=== PATIENT | female | born 1945 | race Caucasian/White ===

== ENCOUNTER 2017-06-28 14:00 | Outpatient (RCR) | payer MEDICARE, SELFPAY ==
--- NOTE | 2017-06-13 15:41 | HP.PTEVAL_ITS ---
Patient's Visit Information SIN LOVELL is a 72 year old F referred to Physical Therapy by Arjun ANDREW with a diagnosis of Left Hip Pain. Date of Evaluation: 06/13/17 Physical Therapist: Theodora Lamb - Visit Plan Frequency: 2x /Week Duration: 3 Weeks Plan: Focus on gym HEP for hip/core - Subjective Subjective: Patient reports that she has had hip pain since January- put her on Naproxen and PT. She didnt want to. The Naproxen is helping a lot- she only has 5% of the pain. Wants to get on a program to work out on the machines. When she comes she tends to overdo. Pain is located along the outside of the hip. Catches and aches at night. Worst: 4/10 Agg: walking, Eases: sitting but has to get up every 30 minutes. Best: 0/10. Also has low back issues. X-rays which show no OA. Torn achilles which has never really healed on the right side so she feels like she compensates. pmhx: HTN, High cholesterol, hard of hearing, sleep apnea, OA. Caregiver 27/12 for her and prior to that she took care of her mom- does not lift but does bend over a lot. Chiropractor told her after 6-7 weeks that her vagal nerve was detatched and she needs to relieve stress- he can't help her. - Objective Posture: FH, RS, increased kyphosis. Gait: no deviation noted. Stairs: asc/ desc 8 recip with 1 HR. HR/TR: able. SLS: unable but can weight shift- reports discomfort. ROM: WFL. Strength: Ankle: 5/5, Knee:4+/5, Hip: 4/5 throughout Core: poor. Palpation: tender along greater troch - Goals Goal 1:: Patient will be I with HEP and progression Goal Time Frame: 4-6 Weeks Goal 2:: Patient will demo 4+/5 strength in LE Goal Time Frame: 4-6 Weeks Goal 3:: Patient will maintain proper posture t/o tx session to demo increased core s/s. Goal Time Frame: 4-6 Weeks - Rehabilitation Potential Physical Therapy Diagnosis: Patient presents with hypmobility- she has decrease strength and muscular endurance leading to poor posture and increased pain. Rehabilitation Potential: Fair - Anticipated Interventions Patient/Client Instruction: Educate patient on: Benefits of Fitness Program For the Purpose of:: To improve performance and independence with ADL's Therapeutic Exercise to Include: Strength training, Endurance training, Body mechanics, Postural training, Flexibilty training, Dynamic Lumbar Stabilization For the Purpose of:: To improve muscle performance and motor function Thank you for the opportunity to evaluate your patient. For Medicare and Medicare HMO plans, please review the plan of care and approve it. It will need to be FAXED BACK to us at [phone] for Medicare purposes. Please let me know if there are questions or concerns regarding this plan of care. Physician Signature: Date:
--- NOTE | 2017-06-28 14:18 | HP.PTDCSUM ---
HP - PT D/C Summary It has been my pleasure to treat SIN LOVELL under orders from Arjun Rose, for the diagnosis of Left Hip Pain for a total of 5 visit(s). Discharge Date: Please see the following information for a summary of their discharge status. - Subjective Subjective: Patient reports that she is having a hard time decipher between the hip and vertigo. The hip aches and she knows its there. TM and Nustep. - Pain L hip Pain Intensity (Out of 10): 5 bilat. LB Pain Intensity (Out of 10): 0 - Objective Objective/Function: Posture: good throughout. Gait: no deviation. ROM: WFL. Strength: 4+/5 hip 5/5 knee/ankle - Goals Goal 1:: Patient will be I with HEP and progression Goal 2:: Patient will demo 4+/5 strength in LE Goal 3:: Patient will maintain proper posture t/o tx session to demo increased core s/s. - Plan Plan: Discharge to I HEP - D/C Information If there are questions or concerns regarding this patient's physical therapy, please feel free to call me at [phone]. Thank you for the referral of this patient. Sincerely, Theodora Lamb
--- NOTE | 2017-09-12 10:45 | HP.PTDCSUM ---
HP - PT D/C Summary It has been my pleasure to treat SIN LOVELL under orders from Arujn Rose, for the diagnosis of Left Hip Pain for a total of 5 visit(s). Discharge Date: Please see the following information for a summary of their discharge status. - Subjective Subjective: Patient reports that she is having a hard time decipher between the hip and vertigo. The hip aches and she knows its there. TM and Nustep. - Pain L hip Pain Intensity (Out of 10): 5 bilat. LB Pain Intensity (Out of 10): 0 - Objective Objective/Function: Posture: good throughout. Gait: no deviation. ROM: WFL. Strength: 4+/5 hip 5/5 knee/ankle - Goals Goal 1:: Patient will be I with HEP and progression Goal 2:: Patient will demo 4+/5 strength in LE Goal 3:: Patient will maintain proper posture t/o tx session to demo increased core s/s. - Plan Plan: Discharge to I HEP - D/C Information If there are questions or concerns regarding this patient's physical therapy, please feel free to call me at [phone]. Thank you for the referral of this patient. Sincerely, Theodora Lamb
== END 2017-06-28 19:00 | disposition home or self-care (01) ==
LOC: PT 14:00
PROVIDERS: Family Provider Family Medicine; PCP Family Medicine; Visit Provider Family Medicine
DX: M25.552 Pain in left hip (principal)
CPT/HCPCS: 97110; 97161; 97530

== ENCOUNTER 2017-07-08 09:31 | Day surgery (SDC) | payer MEDICARE, SELFPAY ==
[2017-07-08 09:56] VITALS: BP 140/72; PULSE 92; RESP 18; TEMP 36.8; O2SAT 99; BMI 36.5
--- NOTE | 2017-07-08 11:30 | H&P.OPEN ---
Past Medical/Surgical History - Planned Operation Planned Operative Procedure/s: COLONOSCOPY Date of Operative Procedure: 07/08/17 Permit Signed: No S.O.S: No Is This Patient Having a Total Joint: No - Previous Hospitalizations/Surgeries HX of Surgeries: HYSTERECTOMY. LEEP CONE Any Problems With Anesthesia: No You/Your Family Experience Fever (Hyperthermia) With Anes: No Cholinesterase deficiency: No - Cardiovascular Hx Chest Pain within Last 2 months: No Hx of Irregular Heartbeat and/or Afib: Yes - HX HEART MURMUR, PCP Hx Heart Attack: No Hx Congestive Heart Failure: No Hx Rheumatic Fever: No Hx Hypertension: Yes - STATES CONTROLLED WITH MED Hx Internal Defibrillator: No Hx Pacemaker: No Hx Cardiac Catheterization: No Hx Cardiac Surgery/Stents/Etc.: No Hx Stress Test: No HX Edema: No Hx Pain in Legs when Walking/Leg Cramps: No - Respiratory Chronic Cough: No HX of Shortness of Breath: Yes - SOB WITH 2 FLIGHTS STAIRS Hoarseness: No Hx Chronic Obstructive Pulmonary Disease (COPD): No Hx Asthma: No Hx Emphysema: No Hx Sleep Apnea: Yes CPAP: No BIPAP: Yes Hx Oxygen Use at Home: No Hx Respiratory Tract Infection/Cold (presently): No Result (for STOP score): Positive Hx Smoking: Yes - QUIT 1997, FORMER 20 PK YR Smoking Status: Former smoker - Gastrointestinal Hx Gastroesophageal Reflux: No Hx Gastrointestinal Disorders: No Hx Gastrointestinal Bleed: No Hx Ulcer: No Hx Hiatal Hernia: No Difficulty Chewing/Swallowing: No Recent Onset of Swallowing Problems: No Special diet followed at home: No Hx Unplanned Weight Loss of 20#: No HX Unplanned Weight Gain of 20#: No - Neurological Hx Seizures: No HX Syncope/Blackout Spells/Unconsciousness: Yes - VERTIGO PER HX,SAW THERAPIST Hx CVA/Stroke: No Hx Transient Ischemic Attacks (TIA): No Hx Multiple Sclerosis: No Hx Parkinson's Disease: No Hx Head/Neck Injury: No Hx Headaches: No Hx Back Injury/Pain: Yes - RECENT HIP INFLAMATION, BACK PAIN Recent Onset of Speech Difficulty: No Restless Legs: Yes Does patient have nerve stimulator: No Patient instructed to have device shut off: No Rep notified?: No - Blood Disorder Hx Leukemia: No Bleeding Tendencies: No Hx Deep Vein Thrombosis: No Hx High Cholesterol: Yes - ON MED Blood Transmitted Disease: No Hx Hepatitis: No Hx Cirrhosis: No Hx Anemia: No Hx Blood Disorders: No - Reproduction : No Is Patient Lactating: No Hx Hysterectomy: Yes Are You Post Menopause: Yes - Genitourinary Hx Renal Disease: No - Musculoskeletal Hx Arthritis: Yes Hx Rheumatoid Arthritis: No Hx Gout: No Recent Onset of an Orthopedic Problem: Yes - HIP INFLAMATION - Endocrine Hx Diabetes: No Thyroid Disease: No Hx Steroid Therapy: No - Psycho/Social Hx Substance Use: No Hx Alcohol Use: No Hx Anxiety: No Hx Depression: No Mental Illness: No Hx Dementia: No - Miscellaneous Hx Cancer: No Recent Exposure to Contagious Disease: No Active MRSA: No Hx of C-Diff: No Any Loose Teeth: No Additional information pertinent to anesthesia:: PHONE INTERVIEW. STATES DOES NOT TOLERATE MEDICATIONS. DIZZINESS WHEN LYING ON RT SIDE Allergies hydrocodone [From Vicodin] Adverse Reaction (Verified 07/08/17 09:53) EXCESSIVE LETHARGY Home Medications Medication Instructions Recorded Aspirin [Aspir-Low] 81 mg PO DAILY 07/06/17 Calcium Citrate 400 mg PO BID 07/06/17 Cholecalciferol (VIT D3) [Vitamin 1,000 unit PO BID 07/06/17 D] Fenofibrate [Tricor] 54 mg PO DAILY 07/06/17 Losartan Potassium [Cozaar] 100 mg PO DAILY 07/06/17 Magnesium 400 mg PO BID 07/06/17 Multivitamin [Multiple Vitamins] 1 each PO DAILY 07/06/17 Bryan-3 Fatty Acids/Fish Oil [Fish 1 each PO DAILY 07/06/17 Oil 1,000 mg Capsule] S-Adenosylmethionine Sul Tosyl 400 mg PO DAILY 07/06/17 [Nakul-E] - Discharge Is Pt Admitted From a Alf, or a Half-Way: No Who Could Help: HOSPITAL TRANSPORTATION After D/C, Where Do you Plan to Go: Return Home - From the [facility] History Number of Risk Factors: 1 - Physical Exam General: Alert, Oriented x3, Cooperative HEENT: Atraumatic Lungs: Normal air movement Cardiovascular: Regular rate, Regular Rhythm Abdomen: Soft, Non Tender, Non-Distended Vital Signs Temp Pulse Resp BP Pulse Ox 98.2 F 92 18 140/72 H 99 07/08/17 09:56 07/08/17 09:56 07/08/17 09:56 07/08/17 09:56 07/08/17 09:56 Oxygen Delivery Method Room Air Weight: 186 lb 15.232 oz Body Mass Index (BMI) 36.5 Assessment/Plan 72-year-old female here for colonoscopy after a positive Cologuard test 1. The patient reports she has never had a colonoscopy in the past. She is not having any bleeding or abdominal pain. She has no family history of colon cancer. 2. I explained endoscopy in detail to the patient. I explained the risks including but not limited to stroke or heart attack with anesthesia, perforation of the GI tract, bleeding, infection. I explained that any of these could necessitate further emergency surgery. The patient understands and all questions were answered sufficiently. The patient wishes to proceed with procedure. Adonay Lopez MD Pager: [facility] [address], [place] [address] [place] [id number] Office: Surgery Risks - Colonoscopy Risks Include but are not Limited To: Risks include but are not limited to: Bleeding, perforation requiring further surgery, inability to complete colonoscopy requiring barium enema.
[2017-07-08 12:05] VITALS: BP 132/65; BP 140/72; PULSE 81; RESP 14; TEMP 36.7; O2SAT 96
[2017-07-08 12:10] VITALS: BP 130/58; BP 140/72; PULSE 83; RESP 16; O2SAT 97
[2017-07-08 12:15] VITALS: BP 122/62; BP 140/72; PULSE 80; RESP 16; O2SAT 98
[2017-07-08 12:20] VITALS: BP 127/63; BP 140/72; PULSE 84; RESP 16; TEMP 36.3; O2SAT 97
[2017-07-08 13:02] VITALS: BP 140/72
--- NOTE | 2017-07-08 13:32 | PCM.OPRPT ---
Problem List (1) Screen for colon cancer Status: Acute Report of Operation Date of Procedure: 07/08/17 Pre-Operative Diagnosis: Screening for colon cancer, positive Cologuard test Post-Operative Diagnosis: Normal colonoscopy Surgery/Procedure Performed:: Colonoscopy Description of Procedure: The major risks and benefits associated with the procedure were explained to the patient in detail. The patient verbalized understanding and agreement with the same. The patient was brought to the endoscopy suite. After adequate sedation was achieved, the patient was placed in the left lateral decubitus position and a digital rectal exam was performed. This examination was within normal limits. A well-lubricated colonoscope was then inserted into the rectum and advanced under direct visualization to the level of the cecum. The bowel prep was good. The cecum was identified by both visual and anatomic landmarks. A photograph was taken of the end of the cecum. The scope was then fully withdrawn while examining the color, texture, anatomy and integrity of the mucosa from the cecum to the anal canal. The findings were consistent with normal colonic mucosa. Over 6 minutes were taken to examine the colonic mucosa. Upon reaching the rectum the scope was retroflexed to examine the distal rectal vault. The scope was then straightened and was completely retrieved upon exiting the anal canal and the procedure was terminated. The patient was then transferred to the recovery room in stable condition. Recommendations for follow up: 5 years if still in good health due to family history of colon cancer
== END 2017-07-08 13:02 | disposition home or self-care (01) ==
LOC: EN 09:32 → AC 09:33
PROVIDERS: Family Provider Family Medicine; PCP Family Medicine; Visit Provider Surgery
PROC: 0DJD8ZZ Inspection of Lower Intestinal Tract, Via Natural or Artificial Opening Endoscopic (ICD-10-PCS; CPT 45378; principal; 2017-07-08 11:10)
DX: Z12.11 Encounter for screening for malignant neoplasm of colon (principal); I10 Essential (primary) hypertension; G47.30 Sleep apnea, unspecified; Z87.891 Personal history of nicotine dependence; E78.00 Pure hypercholesterolemia, unspecified; M19.90 Unspecified osteoarthritis, unspecified site; Z79.82 Long term (current) use of aspirin; Z79.899 Other long term (current) drug therapy
CPT/HCPCS: G0121; J7120

== ENCOUNTER → 2017-12-08 14:52 | Outpatient (CLI) | payer MEDICARE, SELFPAY ==
[2017-12-08 15:54] LABS: Anion Gap 8 (5-15); BUN 12 mg/dL (7-18); Chloride 109 mmol/L (98-107); Creatinine, Serum 0.63 mg/dL (0.55-1.02); EST Glomerular Filtration Rate 98 mL/min (>60); Est Glom Filt Rate - Afr Amer 119 mL/min (>60); Glucose 107 mg/dL (74-106); Potassium 4.1 mmol/L (3.5-5.1); Sodium Level 146 mmol/L (136-145)
== END ==
PROVIDERS: Family Provider Family Medicine; PCP Family Medicine; Visit Provider Family Medicine
DX: I10 Essential (primary) hypertension (principal)
CPT/HCPCS: 36415; 80048

== ENCOUNTER → 2018-06-16 09:49 | Outpatient (CLI) | payer MEDICARE, SELFPAY ==
[2018-06-16 12:39] LABS: Anion Gap 12 (5-15); BUN 10 mg/dL (7-18); BUN/Creat Ratio 15.9 RATIO (10-20); Chloride 107 mmol/L (98-107); Cholesterol 176 mg/dL (200); Creatinine, Serum 0.63 mg/dL (0.55-1.02); EST Glomerular Filtration Rate 99 mL/min (>60); Est Glom Filt Rate - Afr Amer 119 mL/min (>60); Glucose 108 mg/dL (74-106); High Density Lipoprotein 57 mg/dL; Sodium Level 141 mmol/L (136-145); Triglycerides 151 mg/dL; Very Low Density Lipoprotein 30 mg/dL (5-40)
[2018-06-16 12:48] LABS: Vitamin D,25 Hydroxy 34.8 ng/mL (29.95-100.01)
== END ==
PROVIDERS: Family Provider Family Medicine; PCP Family Medicine; Visit Provider Family Medicine
DX: I10 Essential (primary) hypertension (principal); E55.9 Vitamin D deficiency, unspecified
CPT/HCPCS: 36415; 80048; 80061; 82306

== ENCOUNTER → 2018-06-28 16:29 | Outpatient (CLI) | payer MEDICARE, SELFPAY ==
--- NOTE | 2018-06-28 16:34 | RAD_ITS ---
STUDY: X-RAY - LEFT SHOULDER REASON FOR EXAM: Female, 73 years old. Pain. TECHNIQUE: 4 view(s) of the shoulder. COMPARISON: None. FINDINGS: Normal glenohumeral articulation. There are degenerative changes of the acromioclavicular joint. Normal acromion. Normal humeral head and visualized proximal humerus. The soft tissue structures are unremarkable. Normal visualized pulmonary apex. RAD/Shoulder min 2 Views IMPRESSION: Degenerative changes of the acromioclavicular joint. Electronically Signed: Geena Ha MD at 23:18 EST Tel , Service support ,
--- OUTSIDE RECORDS SUMMARY | 2018-08-30 19:01 | XMS RPT_ITS ---
:1945 Author Organization OHIP Care Team Providers Name Role Phone Arjun Rose Attending Unavailable Rose, Arjun Primary Care Unavailable Rose, Arjun Attending Unavailable Rose, Arjun Referring Unavailable Rose, Arjun Primary Care Unavailable Caljose, Adonay Attending Unavailable CalAdonay garcia Referring Unavailable Milton, Arjun Primary Care Unavailable Adonay Lopez Attending Unavailable CalAdonay garcia Referring Unavailable Rose, Arjun Primary Care Unavailable CalAdonay garcia Consulting Unavailable Rose, Arjun Attending Unavailable Rose, Arjun Primary Care Unavailable Rose, Arjun Attending Unavailable Rose, Arjun Primary Care Unavailable Milton, Arjun Referring Unavailable PROBLEMS PROBLEMS DATE TYPE CONDITION / CODE ATTENDING STATUS SOURCE 06/28/2018 Unknown M25.519 - Pain in Arjun Rose Active [place] unspecified Community shoulder / Hospital M25.519(ICD-10) Repository 06/16/2018 Unknown E55.9 - Vitamin D Arjun Rose deficiency, Community unspecified / Hospital E55.9(ICD-10) Repository 06/16/2018 Unknown Z00.00 - Encounter Arjun Rose [place] for general adult [facility] medical Hospital examination Repository without abnormal findings / Z00.00(ICD-10) 12/08/2017 Unknown I10 - Essential Arjun Rose Active [place] (primary) Community hypertension / Hospital I10(ICD-10) Repository 09/02/2017 Unknown Z12.11 - Encounter [place] Lopez for screening for [facility] malignant neoplasm Hospital of colon / Repository Z12.11(ICD-10) 09/15/2017 Unknown M25.552 - Pain in Arjun Rose Active [place] left hip / Community M25.552(ICD-10) Hospital Repository PROCEDURES PROCEDURES No Procedure Records FoundRESULTS RESULTS SHOULDER MIN 2 VIEWS Observed: 06/28/2018 Status: F Source: [place] 4:34 PM [facility] REPOSITORY [facility] Imaging Services [address] [place] [address] Shoulder min 2 Views MR#: [id number] Acct: [id number] Name: DAHIANA MADDEN Rep #: [id number] : 1945 F 73 From: Geena Ha MD PCP: Arjun Rose MD Status: REG CLI Study: Shoulder min 2 Views Date of Exam: 06/28/18 Exam# [id number] Ordering Dr: Arjun Rose MD STUDY: X-RAY - LEFT SHOULDER REASON FOR EXAM: Female, 73 years old. Pain. TECHNIQUE: 4 view(s) of the shoulder. COMPARISON: None. FINDINGS: Normal glenohumeral articulation. There are degenerative changes of the acromioclavicular joint. Normal acromion. Normal humeral head and visualized proximal humerus. The soft tissue structures are unremarkable. Normal visualized pulmonary apex. RAD/Shoulder min 2 Views IMPRESSION: Degenerative changes of the acromioclavicular joint. Electronically Signed: Geena Ha MD at 23:18 EST Tel , Service support , CC: Arjun Rose MD Electrodynamicist: Signed BASIC METABOLIC Collected: 06/16/2018 Status: F Source: [place] PROFILE (BMP) 9:52 AM [facility] REPOSITORY TYPE CODE TESTS RESULT OUT OF RANGE REFERENCE UNITS LAB L501.0100 74-106 mg/dL High GLU 108 Result Comment: Fasting Glucose result from 100 to 125 mg/dL suggests IMPAIRED HOMEOSTASIS per A.D.A. criteria. Please note revised GLUCOSE reference range effective 2017. LAB L501.1000 7-18 mg/dL Normal BUN 10 LAB L501.1100 0.55-1.02 mg/dL Normal CREAT,SERUM 0.63 Result Comment: The validity of the calculated GFR AND GFRAA in patients over 70 years has not been determined. Clinical correlation is essential. LAB L501.1110 >60 mL/min Normal EST GFR 99 Result Comment: Non- GFR Calc LAB L501.1115 >60 mL/min Normal EST GFR - AA 119 Result Comment: GFR Calc LAB L501.1300 10-20 RATIO Normal BUN/CRE 15.9 LAB L501.2200 8.5-10.1 mg/dL CA Normal 9.0 LAB L501.5300 136-145 mmol/L NA Normal 141 LAB L501.5600 3.5-5.1 mmol/L K Normal 4.0 LAB L501.5900 98-107 mmol/L CL Normal 107 LAB L501.6100 21.0-32.0 mmol/L Normal CO2 22.0 LAB L501.6200 5-15 Normal GAP 12 Performed By: #### L500.2500, L500.4100 #### [facility] [address] [place], [address] LIPID PROFILE Collected: 06/16/2018 Status: F Source: [place] 9:52 AM [facility] REPOSITORY TYPE CODE TESTS RESULT OUT OF RANGE REFERENCE UNITS LAB L501.4900 200 mg/dL Normal CHOL 176 Result Comment: <200 mg/dL Desirable 200-240 mg/dL Borderline >240 mg/dL High Risk LAB L501.5000 mg/dL Normal TRIG 151 Result Comment: The drugs N-Acetylcysteine and Metamizole may falsely depress this assay. Serum Triglycerides Reference Interval Normal <150 mg/dL Borderline high 150 - 199 mg/dL High 200 - 499 mg/dL Very High > or = 500 mg/dL LAB L501.6400 mg/dL Normal HDL 57 Result Comment: The drugs N-Acetylcysteine and Metamizole may falsely depress this assay. Reference Range HDL <40 mg/dL Low HDL Cholesterol HDL >or= 60 mg/dL High HDL Cholesterol LAB L501.6500 0-130 mg/dL Normal LDL 89 LAB L501.6600 5-40 mg/dL Normal VLDL 30 Performed By: #### L500.2500, L500.4100 #### [facility] [address] [place], [address] VITAMIN D,25 HYDROXY Collected: 06/16/2018 Status: F Source: [place] 9:52 AM [facility] REPOSITORY TYPE CODE TESTS RESULT OUT OF RANGE REFERENCE UNITS LAB L506.1000 29.95-100.01 ng/mL Normal Vitamin D 34.8 25-OH Result Comment: Vitamin D 25(OH) Status Range Deficiency <20 ng/mL (50nmol/L) Insuffciency 20 - 30 ng/mL (50 - 75 nmol/L) Sufficiency 30 - 100 ng/mL (75 - 250 nmol/L) Toxicity >100 ng/mL (>250 nmol/L) Performed By: #### L506.1000 #### [facility] [address], [address] BASIC METABOLIC Collected: 12/08/2017 Status: F Source: [place] PROFILE (BMP) 2:55 PM [facility] REPOSITORY TYPE CODE TESTS RESULT OUT OF RANGE REFERENCE UNITS LAB L501.0100 74-106 mg/dL High GLU 107 Result Comment: Fasting Glucose result from 100 to 125 mg/dL suggests IMPAIRED HOMEOSTASIS per A.D.A. criteria. Please note revised GLUCOSE reference range effective 2017. LAB L501.1000 7-18 mg/dL Normal BUN 12 LAB L501.1100 0.55-1.02 mg/dL Normal CREAT,SERUM 0.63 Result Comment: The validity of the calculated GFR AND GFRAA in patients over 70 years has not been determined. Clinical correlation is essential. LAB L501.1110 >60 mL/min Normal EST GFR 98 Result Comment: Non- GFR Calc LAB L501.1115 >60 mL/min Normal EST GFR - AA 119 Result Comment: GFR Calc LAB L501.1300 10-20 RATIO Normal BUN/CRE 19.0 LAB L501.2200 8.5-10.1 mg/dL CA Normal 9.0 LAB L501.5300 136-145 mmol/L High NA 146 LAB L501.5600 3.5-5.1 mmol/L K Normal 4.1 LAB L501.5900 98-107 mmol/L High CL 109 LAB L501.6100 21.0-32.0 mmol/L Normal CO2 29.0 LAB L501.6200 5-15 Normal GAP 8 Performed By: #### L500.2500 #### [facility] [address] [place], [address] PT D/C SUMMARY (1) Observed: 09/12/2017 Status: F Source: [place] 10:45 AM [facility] REPOSITORY [facility] Physical Therapy [facility] [address] [place] [address]. [address] [place], [place] [address] Fax REHABILITATION SERVICES DISCHARGE SUMMARY MR#: [id number] Acct: [id number] Name: DAHIANA MADDEN Rep #: [id number] : 1945 72 From: Theodora Lamb DPT Referring Dr.: Arjun Rose MD Status: REG RCR Insurance: [employer] MEDICARE SELF PAY INSURANCE [place] - PT D/C Summary It has been my pleasure to treat DAHIANA MADDEN under orders from DR.PNIELS Rosi for the diagnosis of Left Hip Pain for a total of 5 visit(s). Discharge Date: Please see the following information for a summary of their discharge status. - Subjective Subjective: Patient reports that she is having a hard time decipher between the hip and vertigo. The hip aches and she knows its there. TM and Nustep. - Pain L hip Pain Intensity (Out of 10): 5 bilat. LB Pain Intensity (Out of 10): 0 - Objective Objective/Function: Posture: good throughout. Gait: no deviation. ROM: WFL. Strength: 4+/5 hip 5/5 knee/ankle - Goals Goal 1:: Patient will be I with HEP and progression Goal 2:: Patient will demo 4+/5 strength in LE Goal 3:: Patient will maintain proper posture t/o tx session to demo increased core s/s. - Plan Plan: Discharge to I HEP - D/C Information If there are questions or concerns regarding this patient's physical therapy, please feel free to call me at [phone]. Thank you for the referral of this patient. Sincerely, Theodora Lamb <Electronically signed by Theodora Lamb DPT> 09/12/17 1045 CC: Arjun Rose MD ELR Signed OPERATIVE REPORT Observed: 07/08/2017 Status: F Source: [place] 1:33 PM [facility] REPOSITORY [facility] Medical Records Department [address] [place] [address] [place] [address] Operative Report 07/08/17 1332 MR#: [id number] Acct: [id number] Name: DAHIANA MADDEN Rep #: [id number] : 1945 72 From: Adonay Lopez MD PCP: Arjun Rose MD Status: REG SDC Y Location: [place] [address] Problem List (1) Screen for colon cancer Status: Acute Report of Operation Date of Procedure: 07/08/17 Pre-Operative Diagnosis: Screening for colon cancer, positive Cologuard test Post-Operative Diagnosis: Normal colonoscopy Surgery/Procedure Performed:: Colonoscopy Description of Procedure: The major risks and benefits associated with the procedure were explained to the patient in detail. The patient verbalized understanding and agreement with the same. The patient was brought to the endoscopy suite. After adequate sedation was achieved, the patient was placed in the left lateral decubitus position and a digital rectal exam was performed. This examination was within normal limits. A well- lubricated colonoscope was then inserted into the rectum and advanced under direct visualization to the level of the cecum. The bowel prep was good. The cecum was identified by both visual and anatomic landmarks. A photograph was taken of the end of the cecum. The scope was then fully withdrawn while examining the color, texture, anatomy and integrity of the mucosa from the cecum to the anal canal. The findings were consistent with normal colonic mucosa. Over 6 minutes were taken to examine the colonic mucosa. Upon reaching the rectum the scope was retroflexed to examine the distal rectal vault. The scope was then straightened and was completely retrieved upon exiting the anal canal and the procedure was terminated. The patient was then transferred to the recovery room in stable condition. Recommendations for follow up: 5 years if still in good health due to family history of colon cancer 07/08/17 1333 <Electronically signed by Adonay Lopez MD> Date Adonay Lopez MD CC: Adonay Lopez MD; Arjun Rose MD Signed HISTORY AND PHYSICAL Observed: 07/08/2017 Status: F Source: [place] EXAM 11:32 AM [facility] REPOSITORY [facility] Medical Records Department [address] [place] [address] History and Physical 07/08/17 1130 MR#: [id number] Acct: [id number] Name: DAHIANA MADDEN Rep #: [id number] : 1945 72 From: Adonay Lopez MD PCP: Arjun Rose MD Status: REG [facility] [place] [place] Location: [place] [address] Past Medical/Surgical History - Planned Operation Planned Operative Procedure/s: COLONOSCOPY Date of Operative Procedure: 07/08/17 Permit Signed: No S.O.S: No Is This Patient Having a Total Joint: No - Previous Hospitalizations/Surgeries HX of Surgeries: HYSTERECTOMY. LEEP CONE Any Problems With Anesthesia: No You/Your Family Experience Fever (Hyperthermia) With Anes: No Cholinesterase deficiency: No - Cardiovascular Hx Chest Pain within Last 2 months: No Hx of Irregular Heartbeat and/or Afib: Yes - HX HEART MURMUR, PCP Hx Heart Attack: No Hx Congestive Heart Failure: No Hx Rheumatic Fever: No Hx Hypertension: Yes - STATES CONTROLLED WITH MED Hx Internal Defibrillator: No Hx Pacemaker: No Hx Cardiac Catheterization: No Hx Cardiac Surgery/Stents/Etc.: No Hx Stress Test: No HX Edema: No Hx Pain in Legs when Walking/Leg Cramps: No - Respiratory Chronic Cough: No HX of Shortness of Breath: Yes - SOB WITH 2 FLIGHTS STAIRS Hoarseness: No Hx Chronic Obstructive Pulmonary Disease (COPD): No Hx Asthma: No Hx Emphysema: No Hx Sleep Apnea: Yes CPAP: No BIPAP: Yes Hx Oxygen Use at Home: No Hx Respiratory Tract Infection/Cold (presently): No Result (for STOP score): Positive Hx Smoking: Yes - QUIT 1997, FORMER 20 PK YR Smoking Status: Former smoker - Gastrointestinal Hx Gastroesophageal Reflux: No Hx Gastrointestinal Disorders: No Hx Gastrointestinal Bleed: No Hx Ulcer: No Hx Hiatal Hernia: No Difficulty Chewing/Swallowing: No Recent Onset of Swallowing Problems: No Special diet followed at home: No Hx Unplanned Weight Loss of 20#: No HX Unplanned Weight Gain of 20#: No - Neurological Hx Seizures: No HX Syncope/Blackout Spells/Unconsciousness: Yes - VERTIGO PER HX,SAW THERAPIST Hx CVA/Stroke: No Hx Transient Ischemic Attacks (TIA): No Hx Multiple Sclerosis: No Hx Parkinson's Disease: No Hx Head/Neck Injury: No Hx Headaches: No Hx Back Injury/Pain: Yes - RECENT HIP INFLAMATION, BACK PAIN Recent Onset of Speech Difficulty: No Restless Legs: Yes Does patient have nerve stimulator: No Patient instructed to have device shut off: No Rep notified?: No - Blood Disorder Hx Leukemia: No Bleeding Tendencies: No Hx Deep Vein Thrombosis: No Hx High Cholesterol: Yes - ON MED Blood Transmitted Disease: No Hx Hepatitis: No Hx Cirrhosis: No Hx Anemia: No Hx Blood Disorders: No - Reproduction : No Is Patient Lactating: No Hx Hysterectomy: Yes Are You Post Menopause: Yes - Genitourinary Hx Renal Disease: No - Musculoskeletal Hx Arthritis: Yes Hx Rheumatoid Arthritis: No Hx Gout: No Recent Onset of an Orthopedic Problem: Yes - HIP INFLAMATION - Endocrine Hx Diabetes: No Thyroid Disease: No Hx Steroid Therapy: No - Psycho/Social Hx Substance Use: No Hx Alcohol Use: No Hx Anxiety: No Hx Depression: No Mental Illness: No Hx Dementia: No - Miscellaneous Hx Cancer: No Recent Exposure to Contagious Disease: No Active MRSA: No Hx of C-Diff: No Any Loose Teeth: No Additional information pertinent to anesthesia:: PHONE INTERVIEW. STATES DOES NOT TOLERATE MEDICATIONS. DIZZINESS WHEN LYING ON RT SIDE Allergies hydrocodone [From Vicodin] Adverse Reaction (Verified 07/08/17 09:53) EXCESSIVE LETHARGY Home Medications Medication Instructions Recorded Aspirin [Aspir-Low] 81 mg PO DAILY 07/06/17 Calcium Citrate 400 mg PO BID 07/06/17 Cholecalciferol (VIT D3) [Vitamin 1,000 unit PO BID 07/06/17 - Discharge Is Pt Admitted From a Skilled Nursing, or a Intermediate: No Who Could Help: HOSPITAL TRANSPORTATION After D/C, Where Do you Plan to Go: Return Home - From the PAT History Number of Risk Factors: 1 - Physical Exam General: Alert, Oriented x3, Cooperative HEENT: Atraumatic Lungs: Normal air movement Cardiovascular: Regular rate, Regular Rhythm Abdomen: Soft, Non Tender, Non-Distended Vital Signs Temp Pulse Resp BP Pulse Ox 98.2 F 92 18 140/72 H 99 07/08/17 09:56 07/08/17 09:56 07/08/17 09:56 07/08/17 09:56 07/08/17 09:56 Oxygen Delivery Method Room Air Weight: 186 lb 15.232 oz Body Mass Index (BMI) 36.5 Assessment/Plan 72-year-old female here for colonoscopy after a positive Cologuard test 1. The patient reports she has never had a colonoscopy in the past. She is not having any bleeding or abdominal pain. She has no family history of colon cancer. 2. I explained endoscopy in detail to the patient. I explained the risks including but not limited to stroke or heart attack with anesthesia, perforation of the GI tract, bleeding, infection. I explained that any of these could necessitate further emergency surgery. The patient understands and all questions were answered sufficiently. The patient wishes to proceed with procedure. Adonay Lopez MD Pager: [facility] [address], [address] [address] Office: Surgery Risks - Colonoscopy Risks Include but are not Limited To: Risks include but are not limited to: Bleeding, perforation requiring further surgery, inability to complete colonoscopy requiring barium enema. 07/08/17 1132 <Electronically signed by Adonay Lopez MD> Date Adonay Lopez MD Cosigner Signature: Date (if applicable) CC: Adonay Lopez MD; Arjun Rose MD Signed ALLERGIES ALLERGIES DATE TYPE / CODE NAME / CODE REACTION SEVERITY SOURCE 07/08/2017 Drug hydrocodone/ EXCESSIVE Unknown [place] [facility] Allergy/4160 [id number]([facility] [address](SNOMED XNORM) Repository CT) ENCOUNTERS ENCOUNTERS ADMIT/DISCHARGE ACCOUNT ADMITTING ENCOUNTER LOCATION SOURCE NUMBER CLASS 06/28/2018 [id number] Ambulatory [place] [facility] ing:MTRAD Repository 06/16/2018 [id number] Ambulatory [place] 4 [facility] ing:MFPLAB Repository 12/08/2017 [id number] Ambulatory [place] [facility] ing:MFPLAB Repository 07/08/2017/ [id number] Ambulatory [place] 8 1 [facility] ing:ENRoom: Repository AC10 07/08/2017 [id number] Ambulatory BMSBuilding:B [place] 7 [facility] Repository 06/28/2017/ [id number] Ambulatory [place] 8 2 [facility] ing:PT Repository PAYERS PAYERS ENCOUNTER GUARANTOR PAYER SUBSCRIBER SOURCE 06/28/2018 DAHIANA L Primary DAHIANA L [place] [id number] [address] [facility] Community DRUNIT MEDICAREPolicy [id number] Number: Repository [id number]: ([phone] [id number] [phone] (HP) Date:1507-81-27WN [address] [place] [id number]: 06/28/2018 Secondary NOT GIVENUNK [place] Insurance:SELF PAY [facility] [place]) Number: Effective Repository Date:2018-06-28 06/16/2018 Dahiana Primary Dahiana [place] [id number] [place] [facility] Community DrUnit MEDICAREPolicy [id number] [place] [address] Number: Repository [id number]: 234 [id number] [phone] (HP) Date:4432-03-98XR [address] [facility] [address]DU: 06/16/2018 Secondary NOT GIVENUNK [place] Insurance:SELF PAY [facility] Number: Effective Repository Date:2018-06-16 12/08/2017 [place] [id number] [place] Insurance:[employer] GoodDOB: Community DrUnit MEDICAREPolic [id number] Number: Repository [id number]: 234 [id number] [phone] (HP) Date:0627-12-49UT [address] [place] [address]JH: 12/08/2017 Secondary NOT GIVENUNK [place] Insurance:SELF PAY [facility] Number: Effective Repository Date:2017-12-08 07/08/2017 [facility] [place] [id number] [place] Insurance:[employer] GoodDOB: Community DrUnit [facility] [id number] Number: Repository [id number]: 234 [id number] [phone] () Date:0730-04-49YK [address] [address]JH: 07/08/2017 Secondary NOT GIVENUNK [place] Insurance:SELF PAY [facility] Number: Effective Repository Date:2017-07-04 07/08/2017 [facility] [place] [id number] [place] Insurance:[employer] GoodDOB: Community DrUnit [facility] [id number] Number: Repository [address]Aax: 234 [id number] [phone] (HP) Date:2270-25-06AJ [address] [place] [address]CQ: 07/08/2017 Secondary NOT GIVENUNK [place] Insurance:SELF PAY [facility] Number: Effective Repository Date:2017-07-08 06/28/2017 [facility] [place] [id number] [place] Insurance:[employer] GoodDOB: Community DrUnit MEDICAREPolicy [id number] Number: Repository [address]Otb: ([phone] [id number] [phone] () Date:2575-47-50ZZ [address] [place] [address]UI: 06/28/2017 Secondary NOT GIVENVALARIE Christy Insurance:SELF PAY [facility] ([place], [place]) Number: Effective Repository Date:2017-05-12
== END ==
PROVIDERS: Family Provider Family Medicine; PCP Family Medicine; Referring Provider Family Medicine; Visit Provider Family Medicine
DX: M25.512 Pain in left shoulder (principal)
CPT/HCPCS: 73030

== ENCOUNTER → 2018-11-07 | Outpatient (CLI) | payer MEDICARE, SELFPAY ==
--- NOTE | 2018-11-07 15:15 | BI_ITS ---
MAMMOGRAPHY - BILATERAL SCREENING REASON FOR EXAM: Female, 73 years old. Routine annual screening examination. PERTINENT HISTORY: Non-contributory. TECHNIQUE: Digital bilateral breast yue (3D mammographic acquisition) in the CC and MLO projections. 2-D mediolateral oblique (MLO) and craniocaudad (CC) views of both breasts were obtained. CAD: Full Field Digital Mammography with Computer Added Detection was performed. COMPARISON: Comparison is made with prior examination dated May 12, 2017. FINDINGS: Breast Composition: There are scattered areas of fibroglandular density. There are no dominant masses or suspicious calcifications. Stable appearance of the small lateral axillary lymph nodes. No other significant abnormalities are identified. There has been no significant change since the prior study. BI/SCREEN MAMM (CAD) W/YUE BILAT IMPRESSION: Stable bilateral screening mammogram. Yearly follow-up mammogram recommended. (A) ASSESSMENT CATEGORY: BIRADS Category 2: Benign. A letter regarding these results will be sent to the patient by the facility within 30 days. Approximately 10% of breast cancers are not detected by mammography. A normal mammogram should not delay biopsy of a clinically suspicious abnormality. [id number] Electronically Signed: Julio Maravilla, at 8:42 EDT , Service support ,
== END | disposition home or self-care (01) ==
LOC: OPBI 15:13
PROVIDERS: Family Provider Family Medicine; PCP Family Medicine; Referring Provider Family Medicine; Visit Provider Family Medicine
DX: Z12.31 Encounter for screening mammogram for malignant neoplasm of breast (principal)
CPT/HCPCS: 77063; 77067

== ENCOUNTER → 2019-01-30 | Outpatient (CLI) | payer MEDICARE, SELFPAY ==
[2019-01-30 12:43] LABS: Anion Gap 7 (5-15); BUN 13 mg/dL (7-18); BUN/Creat Ratio 22.5 RATIO (10-20); Calcium,Total 9.1 mg/dL (8.5-10.1); Chloride 111 mmol/L (98-107); Cholesterol 172 mg/dL (200); Creatinine, Serum 0.58 mg/dL (0.55-1.02); EST Glomerular Filtration Rate 108 mL/min (>60); Est Glom Filt Rate - Afr Amer 131 mL/min (>60); Glucose 106 mg/dL (74-106); High Density Lipoprotein 57 mg/dL; Potassium 4.2 mmol/L (3.5-5.1); Sodium Level 143 mmol/L (136-145); Triglycerides 162 mg/dL; Very Low Density Lipoprotein 32 mg/dL (5-40)
== END | disposition home or self-care (01) ==
LOC: MFPLAB 09:54
PROVIDERS: Family Provider Family Medicine; PCP Family Medicine; Referring Provider Family Medicine; Visit Provider Family Medicine
DX: I10 Essential (primary) hypertension (principal)
CPT/HCPCS: 36415; 80048; 80061

== ENCOUNTER → 2019-03-29 | Outpatient (CLI) | payer MEDICARE, SELFPAY ==
--- NOTE | 2019-03-29 08:51 | RAD_ITS ---
STUDY: X-RAY - PELVIS AND LEFT HIP REASON FOR EXAM: Female, 74 years old. Chronic pain. TECHNIQUE: 3 views of the pelvis and hip. COMPARISON: None. FINDINGS: There is a non-specific bowel gas pattern. Normal visualized soft tissue structures. There is narrowing with cortical sclerosis and osteophyte formation of the sacroiliac joint consistent with degenerative osteoarthritic changes. Normal bilateral superior and inferior pubic rami. There are degenerative changes of the pubic symphysis with articular narrowing and sclerosis. Normal bilateral ischial tuberosities. Normal visualized femoral head. There is mild osteoarthritic spur formation of the acetabular rim. There is mild articular joint space narrowing of the hip. RAD/HIP, UNI W/ Pelvis 2-3 Views IMPRESSION: Multilevel degenerative disease as described above. No left hip fracture or subluxation. Electronically Signed: Jocelin Farooq MD at 0:37 EDT , Service support ,
== END | disposition home or self-care (01) ==
PROVIDERS: Family Provider Family Medicine; PCP Family Medicine
DX: M25.552 Pain in left hip (principal)
CPT/HCPCS: 73502

== ENCOUNTER → 2019-08-31 | Outpatient (CLI) | payer MEDICARE, SELFPAY ==
[2019-08-31 13:05] LABS: Anion Gap 7 (5-15); BUN 13 mg/dL (7-18); BUN/Creat Ratio 20.2 RATIO (10-20); Calcium,Total 9.1 mg/dL (8.5-10.1); Chloride 107 mmol/L (98-107); Cholesterol 166 mg/dL (200); Creatinine, Serum 0.64 mg/dL (0.55-1.02); EST Glomerular Filtration Rate 96 mL/min (>60); Est Glom Filt Rate - Afr Amer 116 mL/min (>60); Glucose 109 mg/dL (74-106); High Density Lipoprotein 54 mg/dL; Potassium 4.5 mmol/L (3.5-5.1); Sodium Level 141 mmol/L (136-145); Triglycerides 138 mg/dL; Very Low Density Lipoprotein 28 mg/dL (5-40)
[2019-08-31 13:21] LABS: Vitamin D,25 Hydroxy 44.7 ng/mL
== END | disposition home or self-care (01) ==
LOC: MFPLAB 10:14
PROVIDERS: PCP Family Medicine; Visit Provider Family Medicine
DX: I10 Essential (primary) hypertension (principal); E55.9 Vitamin D deficiency, unspecified
CPT/HCPCS: 36415; 80048; 80061; 82306

== ENCOUNTER → 2020-03-07 | Outpatient (CLI) | payer MEDICARE, SELFPAY ==
--- NOTE | 2020-03-07 12:24 | BI_ITS ---
MAMMOGRAPHY - BILATERAL SCREENING REASON FOR EXAM: Female, 75 years old. Routine annual screening examination. PERTINENT HISTORY: Non-contributory. TECHNIQUE: Digital bilateral breast yue (3D mammographic acquisition) in the CC and MLO projections. 2-D mediolateral oblique (MLO) and craniocaudad (CC) views of both breasts were obtained. CAD: Full Field Digital Mammography with Computer Added Detection was performed. COMPARISON: Comparison is made with prior study of 11/07/2018 and 05/12/2017. FINDINGS: Breast Composition: There are scattered areas of fibroglandular density. There are no dominant masses or suspicious calcifications. Stable benign-appearing bilateral axillary lymph nodes. No other significant abnormalities are identified. There has been no significant change since the prior study. BI/SCREEN MAMM (CAD) W/YUE BILAT IMPRESSION: Stable bilateral screening mammogram. Yearly follow-up mammogram recommended. (A) ASSESSMENT CATEGORY: BIRADS Category 2: Benign. A letter regarding these results will be sent to the patient by the facility within 30 days. Approximately 10% of breast cancers are not detected by mammography. A normal mammogram should not delay biopsy of a clinically suspicious abnormality. [id number] Electronically Signed: Julio Maravilla, at 13:31 EDT , Service support ,
== END | disposition home or self-care (01) ==
LOC: OPBI 12:22
PROVIDERS: PCP Family Medicine; Referring Provider Family Medicine; Visit Provider Family Medicine
DX: Z12.31 Encounter for screening mammogram for malignant neoplasm of breast (principal)
CPT/HCPCS: 77063; 77067

== ENCOUNTER 2020-09-05 06:38 | Day surgery (SDC) | payer MEDICARE, SELFPAY ==
[2020-08-14 12:54] VITALS: BMI 36.2
[2020-09-05] VITALS (7 sets, daily range): BP systolic 125–156; BP diastolic 47–65; PULSE 79–94; RESP 16–18; TEMP 36.4–36.6; O2SAT 94–100; BMI 37.9
[2020-09-05] MEDS: Lactated Ringers 1,000 ML 100 ML IV (07:24)
[2020-09-05] MEDS: Cefazolin 2 GM in 0.9% Normal Saline 100 ML IV (08:36)
[2020-09-05] MEDS: Mupirocin Ointment 22gm Tube 1 APPLIC (09:03)
[2020-09-05] MEDS: Triamcinolone Acetonide 40 MG/ML Vial (09:03)
[2020-09-05] MEDS: Ropivacaine 0.5% 30 ML Vial (09:03)
--- NOTE | 2020-09-05 09:18 | DCINST_ITS ---
Discharge Diet: No Restrictions - Leave dressing on until seen in postop clinic in 10-14 days for suture removal, keep dressing clean, dry, intact; change dressing if gets wet/dirty, call with concerns Discharge Activity: May Not Drive May shower in (days): 1 Ice area for (Minutes): 20 - Every hour while awake. Weight Bearing Status: Weight bearing as tolerated Keep extremity elevated above heart level: Operative Extremity Call your doctor if your incision/area has: Continuous Slow Oozing, Sudden Increased Bleeding, Increased Pain/ Swelling, Increased Redness, Foul Smelling Discharge Call your doctor if you observe: Fever of 101 or Higher, Coldness, Increased Pain, Numbness or Tingling, Change in Color, Calf discomfort Allergies/Adverse Reactions: Allergies hydrocodone [From Vicodin] Adverse Reaction (Verified 08/29/20 11:19) EXCESSIVE LETHARGY Medications to take at Discharge Calcium Citrate 400 mg PO DAILY 07/06/17 Cholecalciferol (VIT D3) [Vitamin D] 1,000 unit PO DAILY 07/06/17 Fenofibrate [Tricor] 54 mg PO DAILY 07/06/17 Losartan Potassium [Cozaar] 100 mg PO DAILY 07/06/17 Magnesium 400 mg PO BID 07/06/17 Multivitamin [Multiple Vitamins] 1 ea PO DAILY 07/06/17 [place]-3 Fatty Acids/Fish Oil [Fish Oil 1,000 mg Capsule] 1 ea PO DAILY 07/06/17 S-Adenosylmethionine Sul Tosyl [Nakul-E] 400 mg PO DAILY 07/06/17 Calcium Polycarbophil [Fiber Tabs] 2 tablet PO BID 08/29/20 Cyanocobalamin (Vitamin B-12) [Vitamin B-12] 1,000 mcg PO DAILY 08/29/20 Acetaminophen/Codeine #3 [Tylenol #3 Tablet] 1 - 2 tablet PO Q6H PRN PRN #15 tab 09/05/20 The following prescriptions were given: Acetaminophen/Codeine #3 [Tylenol #3 Tablet] 1 - 2 tablet PO Q6H PRN PRN #15 tab PRN Reason: Pain Transmission Status: Sent to [facility] Primary Care Physician: Arjun Rose MD [Primary Care Provider] - Test Results: Test results from this visit will be discussed in further detail at your follow- up appointment, if applicable. Please Follow Up With: Joycelyn Mcfarlane DO - [phone]
--- NOTE | 2020-09-05 09:18 | HP.PCM_ITS ---
History and Physical I have re-examined the patient. There are no clinical changes since date of exam. Intake Vital Signs 08/14/20 Height 5 ft 1.5 in 08/14/20 Weight: 195 lb 08/14/20 BMI 36.2 Intake Visit Reasons: Bilat hands Accompanied by: self Is patient in pain?: Yes Pain scale (1-10): 5 Allergies hydrocodone [From Vicodin] Adverse Reaction (Verified 07/08/17 09:53) EXCESSIVE LETHARGY Medications Aspirin [Aspir-Low] 81 mg PO DAILY 07/06/17 [History Confirmed 08/14/20] Calcium Citrate 400 mg PO BID 07/06/17 [History Confirmed 08/14/20] Cholecalciferol (VIT D3) [Vitamin D] 1,000 unit PO BID 07/06/17 [History Confirmed 08/14/20] Fenofibrate [Tricor] 54 mg PO DAILY 07/06/17 [History Confirmed 08/14/20] Losartan Potassium [Cozaar] 100 mg PO DAILY 07/06/17 [History Confirmed 08/14/20] Magnesium 400 mg PO BID 07/06/17 [History Confirmed 08/14/20] Multivitamin [Multiple Vitamins] 1 ea PO DAILY 07/06/17 [History Confirmed 08/14/20] [place]-3 Fatty Acids/Fish Oil [Fish Oil 1,000 mg Capsule] 1 ea PO DAILY 07/06/17 [History Confirmed 08/14/20] S-Adenosylmethionine Sul Tosyl [Nakul-E] 400 mg PO DAILY 07/06/17 [History Confirmed 08/14/20] Is last menstrual period known: Yes Post menopausal: Yes Patient : No PFSH Medical History (Updated 08/14/20 @ 12:56 by Davina Alvares) hx of child (Acute) HTN (hypertension) (Chronic) Surgical History (Updated 08/14/20 @ 12:56 by Davina Alvares) Hx of cataract surgery (Acute) Hx of hysterectomy (Acute) Social History (Updated 08/14/20 @ 15:[address] Joycelyn Mcfarlane DO) Smoking Status: Former smoker HPI Bilat hands: Surgical H&P: Yes Details: Parts of this documentation were recorded by a scribe, this documentation accurately reflects the service provided and the decisions made by me, Dr. Joycelyn Mcfarlane DO 08/14/20 1239. SIN LOVELL is a 75 year old F NEW patient here today for BL hand trigger fingers. She has a left thumb trigger finger and a right ring finger trigger finger. She states that the right one started in February and then left one started in October. She denies any injections or previous treatment. She has a achiness of the right ring finger and an achiness of the left thumb. She has numbness of the left thumb. She did have tingling of the right arm when the right trigger finger first started. Ortho Exam General General: Yes no acute distress Neurologic: Yes alert, Yes oriented x3 Psychologic: Yes reasonable and appropriate Right Wrist/Hand Skin/Wound: No Swelling, No Ecchymosis, Yes capillary refill normal A1 trevin trigger: Yes Sensation: Radial: I, Ulnar: I, Median: I Left Wrist/Hand Skin/Wound: No Swelling, No Ecchymosis, Yes capillary refill normal, No erythema A1 trevin trigger: Yes Sensation: Radial: I, Ulnar: I, Median: I Assessment & Plan Problems 1. Trigger finger, right ring finger M65.341 2. Trigger thumb, left thumb M65.312 Plan Obtained X-rays of patient's BL hands. Personally reviewed x-rays. There is no obvious fracture, dislocation, or lucency noted. She does have a right ring finger trigger finger along with a left trigger thumb. Treatment options are do nothing or finger splinting at night or A1 trevin injections or A1 trevin release. Patient wishes to proceed with left thumb A1 trevin release and a right ring trigger finger injection. Reviewed the pre-operative plans with the patient. Risks and benefits of the procedure were fully explained, including but not limited to infection, neurovascular injury, continued pain, arthritis, stiffness, need for further surgery, re-injury, DVT, PE, general risks of anesthesia, and loss of limb or life. The patient understands all the risks and does wish to proceed with written consent. Follow up 2 weeks post op or sooner if pain, swelling, numbness or associated symptoms, or concerns develop. All questions answered. Patient in agreement of plan. Orders Orders: Hand Min 3 Views Today M65.312 Hand Min 3 Views Today M65.341 Coding Level of Care Code 31395 Diagnoses Trigger finger, right ring finger M65.341 Trigger thumb, left thumb M65.312 COVID (Procedure Consent) Procedure Criteria Procedure Criteria: Yes Elective The surgeon/proceduralist and patient have discussed in detail the risk of exposure to and/or potential harm posed by the COVID-19 virus with having a surgery/procedure at this time versus the risk of? delaying the surgery/procedure. It is not possible to know either the risk of delaying the surgery or procedure or chance of getting an infection with perfect accuracy, but a joint decision was made between the patient and the surgeon/proceduralist ?to proceed at this time with the scheduled surgery/procedure as indicated on the consent form.
--- NOTE | 2020-09-05 09:19 | OP.PCM_ITS ---
Report of Operation Date of Procedure: 09/05/20 Pre-Operative Diagnosis: left thumb trigger finger, right ring finger trigger finger Post-Operative Diagnosis: same Surgery/Procedure Performed:: left thumb a1 trevin release, right ring finger a1 trevin injection Type of Anesthesia:: General Anesthesiologist: John Carrero Estimated Blood Loss (mL): min Fluids Replaced: 400cc lr Description of Procedure: Preoperative note Patient is a 75-year-old female who quite painful right trigger thumb recalcitrant to conservative treatment options as well as a left ring finger trigger finger. Due to the fact that it was locking quite painful we decided to operate so she can regain function and decreases her pain. Risks benefits and alternatives surgery discussed with patient. Risks including but not limited to blood loss, blood clot, infection, neurovascular injury, failure procedure, loss of life and loss of limb. Patient is aware would like proceed with right trigger finger thumb release A1 trevin release. Operative note Patient seen and examined preoperative holding area. Right thumb was marked. Patient is brought to the operating room and placed supine on the operating table. Sign, anesthesia, antibiotics were administered. The right arm was prepped and draped in usual sterile fashion. Timeout was performed. We marked out our incision at the A1 trevin of the right thumb. We was about a centimeter centimeter and a half for length. We used a 15 blade to cut the skin tenotomies to dissect down to the level of the A1 trevin. We then released the A1 trevin both proximally and distally we then brought the tendons out of the incision and flex and extend at the DIP of the right thumb to ensure that we had no further l ocking which we did not have. We then irrigated the incision with copious amounts of sterile saline. Incision was closed with interrupted 4-0 nylon stitches. Tourniquet was deflated for total working time of 10 minutes. We then moved to our right ring finger A1 trevin injection. Under standard sterile technique we injected the right A1 trevin with 1 cc ropivacaine 1/2 cc Kenalog. Patient tolerated procedure well there are no complications transferred to recovery room in stable condition. Postoperative note Use hand as tolerated but keep incision clean and dry Discussed with family Follow-up in 2 weeks for dressing change and suture removal Hospital pharmacy has prescriptions This note was generated with [employer] software. It may contain incorrect words, spelling, and punctuation that were not noted in checking the note before signing. This note was generated with [employer] software. It may contain incorre
[2020-09-05] MEDS: Acetaminophen/Codeine #3 Tablet 1 TABLET PO (10:46)
== END 2020-09-05 11:35 | disposition home or self-care (01) ==
LOC: SDC 06:39 → AC 06:39
PROVIDERS: PCP Family Medicine; Referring Provider Orthopaedic Surgery; Visit Provider Orthopaedic Surgery
PROC: (CPT 26055; principal; 2020-09-05 08:40)
DX: M65.341 Trigger finger, right ring finger (principal); M65.312 Trigger thumb, left thumb; I10 Essential (primary) hypertension; Z87.891 Personal history of nicotine dependence; E78.00 Pure hypercholesterolemia, unspecified; G47.30 Sleep apnea, unspecified; Z20.822 Contact with and (suspected) exposure to COVID-19; Z79.899 Other long term (current) drug therapy
CPT/HCPCS: 01810; 26055; 64450; 87426; C9803; J7120; J2405

== ENCOUNTER → 2021-02-20 09:27 | Outpatient (CLI) | payer MEDICARE, SELFPAY ==
[2021-02-20 10:30] LABS: Vitamin D,25 Hydroxy 47.2 ng/mL
[2021-02-20 10:41] LABS: Anion Gap 6 (5-15); BUN 15 mg/dL (7-18); BUN/Creat Ratio 27.6 RATIO (10-20); Calcium,Total 8.8 mg/dL (8.5-10.1); Chloride 109 mmol/L (98-107); Cholesterol 152 mg/dL (200); Creatinine, Serum 0.54 mg/dL (0.55-1.02); EST Glomerular Filtration Rate 115 mL/min (>60); Est Glom Filt Rate - Afr Amer 140 mL/min (>60); Glucose 116 mg/dL (74-106); High Density Lipoprotein 57 mg/dL; Potassium 4.1 mmol/L (3.5-5.1); Sodium Level 139 mmol/L (136-145); Triglycerides 140 mg/dL; Very Low Density Lipoprotein 28 mg/dL (5-40)
== END ==
PROVIDERS: PCP Family Medicine; Referring Provider Family Medicine; Visit Provider Family Medicine
DX: Z00.00 Encounter for general adult medical examination without abnormal findings (principal); I10 Essential (primary) hypertension
CPT/HCPCS: 36415; 80048; 80061; 82306

== ENCOUNTER → 2021-03-13 16:10 | Outpatient (CLI) | payer MEDICARE, SELFPAY ==
--- NOTE | 2021-03-13 16:12 | RAD_ITS ---
STUDY: X-RAY - RIGHT SHOULDER REASON FOR EXAM: Female, 76 years old. Pain. TECHNIQUE: 4 view(s) of the shoulder. COMPARISON: None. FINDINGS: Normal glenohumeral articulation. There is a minimal degenerative arthrosis of the acromioclavicular joint without inferior osseous spur formation. Normal acromion. There is no acute fracture, dislocation or destructive osseous pathology. Normal humeral head and visualized proximal humerus. The soft tissue structures are unremarkable. Normal visualized pulmonary apex. RAD/Shoulder min 2 Views IMPRESSION: Minimal degenerative changes of the acromioclavicular joint. Electronically Signed: Neal Duff DO at 17:08 EDT Tel [phone], Service support ,
== END ==
PROVIDERS: PCP Family Medicine; Referring Provider Family Medicine; Visit Provider Family Medicine
DX: M25.511 Pain in right shoulder (principal)
CPT/HCPCS: 73030

== ENCOUNTER 2021-05-04 15:00 | Outpatient (RCR) | payer MEDICARE, SELFPAY ==
--- NOTE | 2021-04-07 14:43 | HP.PTEVAL ---
Patient's Visit Information SIN LOVELL is a 76 year old F referred to Physical Therapy by Dr. Arjun Rose MD with a diagnosis of R shoulder pain. Date of Evaluation: 04/07/21 Physical Therapist: John Shelby, DPT, OCS, CSCS - Visit Plan Frequency: 2-3x /Week Duration: 4-6 Weeks Plan: 2-3x/week for 4-6 weeks for. 1. US nonthermal to R supraspin area. 2. manual therapy mobs grade 1 and PROM R shoulder. 3. strength scap and posture and RC to HEP. 4. TENS ice if needed. - Subjective Hurt my r shoulder in mid February. Picked up digna litter 16# jugs and that may have caused pain but did not notice it at the time. [place] a pop a week later while driving. Pain started moreso with the pop. Pain is hillary lateral R shoulder. Hurts to reach, hurts to brush teeth, hard to lift. Pain is not present at redt, lifting is 6/10. Sleep is interrupted if she rolls on it. Using linment oil whcih helps. Is on muscle relaxers which did not help. Still doing fall chores but they hurt. Hard to dress as it it hurts to put arm is sleeve. Pulling pants up and pericare can be challenging. 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 No treatment yet. takes naproxen 2x/day - Pain R shoulder. Pain Intensity (Out of 10): 0 Pain Intensity Range: 0, 6 - Objective R shoulder. Walks with arms swinging OK and I. Trasnfers I. good balance. Scap AROM WFL B. elbow and wrist AROM WFL B, some pain with end range R elbow flexion. L shoulder flexion WNL, R shoulder elevation to 130 limited by pain abd and flexion, able to lower slowly with pain but appropriately. Ext rotation L and R symmetrical but painful R end range. IR hurts to PSIS on R>. PROM not past AROM numbers and painful ER, IR and abd/flexion. + HK, + neer, - drop arm, - ext rot lag test, - sulcus. reflexes 2/3 bi and tri B. Sensation WNL to gross light touch B UE. Strength L UE shoulder 4 and elbow 4+ and wrist 4. R wrist 4/5, elbow 4+/5 and shoulder ext rotation 4- pain, IR 4 pain, flexion 4- pain, abd 3+ and pain. + speeds and empty can. Tender to palpation over R supraspinatus mod. Posture is forward head and protracted scap. - Balance/Special Test Scores Quick DASH Score: 56.8175 - Goals Goal 1:: spoon to mouth without pain Goal Time Frame: 4-6 Weeks Goal 2:: Sleep without interruption at night Goal Time Frame: 4-6 Weeks Goal 3:: Lift arm to do hair and put on shirt without hesitation Goal Time Frame: 4-6 Weeks Goal 4:: I apporp HEP to minimize future problems. Goal Time Frame: 4-6 Weeks - Rehabilitation Potential Physical Therapy Diagnosis: r shoulder pain likely impingement tendonitis subscap Rehabilitation Potential: Good - Anticipated Interventions Patient/Client Instruction: Educate patient on: Condition, Plan of Care For the Purpose of:: To decrease pain, To increase ROM, To improve muscle performance and motor function, To increase tolerance to activity/condition/position Therapeutic Exercise to Include: Strength training, Postural training, Flexibilty training, Gait and locomotor training, Passive ROM, Active ROM, Scapular Strength/Stabilization For the Purpose of:: To decrease pain, To increase ROM, To improve muscle performance and motor function, To improve ability of physical actions for home/community/work/leisure Manual Therapy Techniques to Include: Mobilization, Passive ROM, Soft tissue mobilization For the Purpose of:: To decrease pain, To improve muscle performance and motor function, To increase tolerance to activity/condition/position TENS: Yes Cryotherapy (ice pack, ice massage): Yes Thermo therapy (hot pack): Yes Ultrasound (thermal/non thermal): Yes - nonthermal R supraspin. For the Purpose of:: To decrease pain, To decrease swelling/inflammation, To improve muscle performance and motor function, To increase tolerance to activity/condition/position Thank you for the opportunity to evaluate your patient. For Medicare and Medicare HMO plans, please review the plan of care and approve it. It will need to be FAXED BACK to us at [phone] for Medicare purposes. For Medicare only, by signing this I certify the plan of care. Please let me know if there are questions or concerns regarding this plan of care. Physician Signature: Date:
--- NOTE | 2021-05-04 15:16 | HP.PTDCSUM ---
It has been my pleasure to treat SIN LOVELL referred by Dr. Arjun Rose MD, with the diagnosis of R shoulder pain for a total of 9 visit(s). Discharge Date: 05/04/21 Please see the following information for a summary of their discharge status. Subjective: Much better. Not getting twinges as often as used to and can avoid those activities. Mostly with reaching out to side. Can get seat belt on now. Could never reach behind her. Sleep is OK much better. Activities pretty normal including brushing teeth. Still clicks at t imes. Doing exercises at home with band. R shoulder. Pain Intensity (Out of 10): 0 % Improvement: 88 Objective/Function: 155 and symmetrical elevation of shoulders. symmetrical er and IR, no pain R. Moving well overall and much better. Strength 4/5 R to L and no pain with reistance at shoulders. Goal 1:: spoon to mouth without pain Goal Progress: Goal Met Goal 2:: Sleep without interruption at night Goal Progress: Goal Met Goal 3:: Lift arm to do hair and put on shirt without hesitation Goal Progress: Goal Met Goal 4:: I apporp HEP to minimize future problems. Goal Progress: Goal Met Plan: d/c to HEP Discharge Comments: Doing well and will continue via HEP and gym If there are questions or concerns regarding this patient's physical therapy, please feel free to call me at [phone]. Thank you for the referral of this patient. Sincerely, John Shelby, DPT, OCS, CSCS Balance/Gait/Functional tests - Balance/Special Test Scores Quick DASH Score: 4.5450
== END 2021-05-04 19:00 | disposition home or self-care (01) ==
LOC: PT 15:00
PROVIDERS: PCP Family Medicine; Referring Provider Family Medicine; Visit Provider Family Medicine
DX: M25.511 Pain in right shoulder (principal)
CPT/HCPCS: 97035; 97110; 97140; 97161; 97164

== ENCOUNTER → 2021-10-26 | Outpatient (CLI) | payer MEDICARE, SELFPAY ==
[2021-10-26 12:56] LABS: Vitamin D,25 Hydroxy 43.5 ng/mL
[2021-10-26 13:01] LABS: Anion Gap 7 (5-15); BUN 14 mg/dL (7-18); BUN/Creat Ratio 21.1 RATIO (10-20); Calcium,Total 9.1 mg/dL (8.5-10.1); Chloride 108 mmol/L (98-107); Cholesterol 175 mg/dL (200); Creatinine, Serum 0.66 mg/dL (0.55-1.02); EST Glomerular Filtration Rate 91 mL/min (>60); Est Glom Filt Rate - Afr Amer 111 mL/min (>60); Glucose 111 mg/dL (74-106); High Density Lipoprotein 58 mg/dL; Potassium 3.9 mmol/L (3.5-5.1); Sodium Level 140 mmol/L (136-145); Triglycerides 178 mg/dL; Very Low Density Lipoprotein 36 mg/dL (5-40)
== END | disposition home or self-care (01) ==
LOC: MFPLAB 09:42
PROVIDERS: PCP Family Medicine; Visit Provider Family Medicine
DX: I10 Essential (primary) hypertension (principal); E55.9 Vitamin D deficiency, unspecified
CPT/HCPCS: 36415; 80048; 80061; 82306

== ENCOUNTER → 2022-03-11 | Outpatient (CLI) | payer MEDICARE, SELFPAY ==
--- NOTE | 2022-03-11 10:10 | RAD_ITS ---
STUDY: X-RAY - PELVIS AND BILATERAL HIPS REASON FOR EXAM: Female, 77 years old. Hip pain. TECHNIQUE: AP view of the pelvis.? 2 views of the right hip, and 2 views of the left hip were obtained. COMPARISON: 03/29/2019. FINDINGS: There is a non-specific bowel gas pattern. Normal visualized soft tissue structures. Osteopenia. Mild arthrosis of both AC joints unchanged. Normal bilateral superior and inferior pubic rami. Stable mild arthrosis of the symphysis pubis. Normal bilateral ischial tuberosities. Moderate to marked lower lumbosacral spondylosis with scoliosis. Mild arthrosis of both hips. RAD/Hips B/L min 2 views w/ Pelvis IMPRESSION: Osteopenia with osteoarthritic changes as described. Lower lumbosacral spondylosis. No acute abnormality, evidence of erosive changes or fusion. Electronically Signed: Jack Francis, at 11:44 EDT ,
== END | disposition home or self-care (01) ==
LOC: MTRAD 10:05
PROVIDERS: PCP Family Medicine; Referring Provider Family Medicine; Visit Provider Family Medicine
DX: M25.551 Pain in right hip (principal)
CPT/HCPCS: 73521

== ENCOUNTER → 2022-04-28 | Outpatient (CLI) | payer MEDICARE, SELFPAY ==
[2022-04-28 13:01] LABS: Vitamin D,25 Hydroxy 48.1 ng/mL
[2022-04-28 13:12] LABS: Anion Gap 9 (5-15); BUN 18 mg/dL (7-18); BUN/Creat Ratio 27.5 RATIO (10-20); Calcium,Total 9.1 mg/dL (8.5-10.1); Chloride 111 mmol/L (98-107); Cholesterol 181 mg/dL (200); Creatinine, Serum 0.66 mg/dL (0.55-1.02); EST Glomerular Filtration Rate 93 mL/min (>60); Est Glom Filt Rate - Afr Amer 112 mL/min (>60); Glucose 111 mg/dL (74-106); High Density Lipoprotein 59 mg/dL; Potassium 3.9 mmol/L (3.5-5.1); Sodium Level 142 mmol/L (136-145); Triglycerides 148 mg/dL; Very Low Density Lipoprotein 30 mg/dL (5-40)
== END | disposition home or self-care (01) ==
LOC: MFPLAB 10:01
PROVIDERS: PCP Family Medicine; Visit Provider Family Medicine
DX: Z00.00 Encounter for general adult medical examination without abnormal findings (principal); I10 Essential (primary) hypertension; E55.9 Vitamin D deficiency, unspecified
CPT/HCPCS: 36415; 80048; 80061; 82306

== ENCOUNTER → 2022-06-03 | Outpatient (CLI) | payer MEDICARE, SELFPAY ==
--- NOTE | 2022-06-03 14:19 | BI_ITS ---
MAMMOGRAPHY - BILATERAL SCREENING REASON FOR EXAM: Female, 77 years old. Routine annual screening examination. PERTINENT HISTORY: Non-contributory. TECHNIQUE: Digital bilateral breast yue (3D mammographic acquisition) in the CC and MLO projections. 2-D mediolateral oblique (MLO) and craniocaudad (CC) views of both breasts were obtained. CAD: Full Field Digital Mammography with Computer Added Detection was performed. COMPARISON: 03/07/2020, 11/07/2018. FINDINGS: Breast Composition: There are scattered areas of fibroglandular density. There are no dominant masses or suspicious calcifications. Stable benign-appearing bilateral axillary lymph nodes. No other significant abnormalities are identified. There has been no significant change since the prior study. BI/SCRN MAMM (CAD)W/YUE BILAT IMPRESSION: Stable bilateral screening mammogram. Yearly follow-up mammogram recommended. (A) ASSESSMENT CATEGORY: BIRADS Category 2: Benign. A letter regarding these results will be sent to the patient by the facility within 30 days. Approximately 10% of breast cancers are not detected by mammography. A normal mammogram should not delay biopsy of a clinically suspicious abnormality. Electronically Signed: Raghu Murrell, at 10:56 EST ,
--- NOTE | 2022-06-03 14:28 | BD_ITS ---
STUDY: DUAL ENERGY X-RAY ABSORPTIOMETRY / DXA REASON FOR EXAM: Female, 77 years old. [id number] TECHNIQUE: Bone Mineral Density (BMD) measurements of lumbar spine and bilateral hips were obtained. COMPARISON: Comparison is made with prior study dated 05/12/2017. FINDINGS: Lumbar Spine (L1-L4): g/cm2 (1.112) / T-score (0.9) / Z-score (3.4) Findings are suggestive of normal bone density with a low fracture risk. Left Femur Total: g/cm2 (1.003) / T-score (0.5) / Z-score (2.5) Left Femoral Neck: g/cm2 (0.776) / T-score (-0.7) / Z-score (1.6) Right Femur Total: g/cm2 (0.979) / T-score (0.3) / Z-score (2.3) Right Femoral Neck: g/cm2 (0.815) / T-score (-0.3) / Z-score (1.9) The T-Scores on the most recent prior examination were: Lumbar Spine (L1-L4): There has been improvement of bone density since the previous examination. Left Femur Total: which represents an improvement of 2.1%. Right Femur Total: which represents an improvement of 0.8%. BD/Dexa Bone Density Study IMPRESSION: The patient is considered normal as outlined below according to World Michael Organization (WHO) criteria with a low fracture risk. There has been improvement of bone density since the previous examination. Reference Information: The T-score is the number of standard deviations above or below the standard which is normal for young adults at their peak bone mineral density. The World Health Organization (WHO) interprets the T-scores as follows: Above -1 Normal bone density Between -1 and -2.5 Osteopenia Equal to / or below -2.5 Osteoporosis As a practical clinical guideline, osteopenia may be graded as follows: Mild -1 through -1.5 Moderate -1.6 through -2.0 Severe -2.1 through -2.4 The Z-score is the number of standard deviations above or below age-matched controls. A Z-score of less than -1.5 would be considered abnormal. References: 1. NIH Osteoporosis and Related Bone Diseases www osteo.org 2. International Society for Clinical Densitometry www iscd.org 3. National Osteoporosis Foundation www nof.org Electronically Signed: Julio Maravilla MD at 11:10 EST ,
== END | disposition home or self-care (01) ==
LOC: OPBD 14:17
PROVIDERS: PCP Family Medicine; Visit Provider Family Medicine
DX: Z00.00 Encounter for general adult medical examination without abnormal findings (principal); Z12.31 Encounter for screening mammogram for malignant neoplasm of breast; Z78.0 Asymptomatic menopausal state
CPT/HCPCS: 77063; 77067; 77080

== ENCOUNTER 2023-02-28 12:23 | Outpatient (RCR) | payer MEDICARE, SELFPAY ==
--- NOTE | 2023-02-28 13:28 | HP.PTEVAL ---
Patient's Visit Information Visit Information Visit Information: SIN LOVELL is a 78 year old F referred to Physical Therapy by Dr. Alberto Hall DPM with a diagnosis of Bilateral Achilles Tendonitits. Date of Evaluation: 02/28/23 Physical Therapist: Theodora Lamb DPT Visit Plan Frequency: 2x /Week Duration: 4 Weeks Plan: Pt to perform HEP for 4 weeks then follow up with PT as she has a lot going on with partner and is unable to fit in PT weekly. HEP Given IE: Gastroc Stretch, HR/TR Subjective Subjective: Patient reports that she has Achilles Tendonitis Left is worse than Right- Dr. Hall thought that since she had a bad sciatica bought she put more weight on her left and its more swollen- and he put her on Prednisone and some exercises and she has been doing the exercises when she can. 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 This pain started in the middle of December- she has had issues with her right leg for about a year- the MD could not figure out what it was she she diagnosed herself with sciatica- The pain is located along the achilleas tendon-no radiating pain. Agg: sitting with anything pressing on them or wearing shoes that rub on them, walking. Worst: near tears. Eases: BioFreeze and warm socks. Best: 0/10. No pain currently because she is sitting. Describes the pain as shooting but its sharp and achying depending on what she is doing. Sleep: wakes her up and she was sleeping a pillow under her knees to keep her heels from hitting the bed. No orthotics in her shoes- wears clay with roll bar that saves her from rolling her ankles. She feels that her feet are getting better since she is wearing shoes more in the achilles. No N/T in the toes. Right Achilles Tendon Tear in her right foot that she wore a boot for for 6 months 15 years ago. PMHx/Meds:Losartin, Predisone Objective Objective: Posture: FH, RS- can correct but does not maintain Gait: antalgic- wide base of support with toes turned out to the side with poor toe off- she wears open backed sandals with poor arch support. HR/TR: able with UE A- unable to perform eccentric heel raise due to pain SLS: weight shift but unable to SLS Observation: significant thickening of the left Achilles tendon Palpation: tender along bilateral Achilles Tendons ROM: WFL in all planes of the ankles with the exception of DF Left: 10 degrees Right: 12 degrees and LE Strength: 5/5 Flex: HS: moderate, Gastroc: moderate, Soleus: moderate Balance/Special Test Scores Lower Extremity Functional Score: 41 Goals Goal 1:: Patient will be I with HEP and progression. Goal Time Frame: 4-6 Weeks Goal 2:: Patient will ambulate with normalized gait pattern Goal Time Frame: 4-6 Weeks Goal 3:: Patient will report 80% improvement Goal Time Frame: 4-6 Weeks Rehabilitation Potential Physical Therapy Diagnosis: Patient presents with hypomobility- she has decreased LE ROM and strength, flex and muscular endurance leading to abnormal gait and increased pain with ADL's. Rehabilitation Potential: Good Anticipated Interventions Patient/Client Instruction: Educate patient on: Benefits of Fitness Program Therapeutic Exercise to Include: Strength training, Endurance training, Balance training, Agility training, Body mechanics, Postural training, Flexibilty training, Gait and locomotor training, Neuromotor development and Dynamic Lumbar Stabilization For the Purpose of:: To improve muscle performance and motor function Manual Therapy Techniques to Include: Soft tissue mobilization TENS: Yes Cryotherapy (ice pack, ice massage): Yes Thermo therapy (hot pack): Yes Ultrasound (thermal/non thermal): Yes Text: Thank you for the opportunity to evaluate your patient. For Medicare and Medicare HMO plans, please review the plan of care and approve it. It will need to be FAXED BACK to us at [phone] for Medicare purposes. For Medicare only, by signing this I certify the plan of care. Please let me know if there are questions or concerns regarding this plan of care. Physician Signature: Date:
--- NOTE | 2023-06-02 08:32 | HP.PT.NRP ---
Patient Information Patient Information: SIN LOVELL was seen in my office for initial evaluation on 02/28/23. The following Plan of Care was established for this patient: POC Established Initial Frequency: 2x /Week Initial Duration: 4 Weeks Anticipated Interventions Patient/Client Instruction: Educate patient on: Benefits of Fitness Program Therapeutic Exercise to Include: Strength training, Endurance training, Balance training, Agility training, Body mechanics, Postural training, Flexibilty training, Gait and locomotor training, Neuromotor development and Dynamic Lumbar Stabilization For the Purpose of:: To improve muscle performance and motor function Manual Therapy Techniques to Include: Soft tissue mobilization TENS: Yes Cryotherapy (ice pack, ice massage): Yes Thermo therapy (hot pack): Yes Ultrasound (thermal/non thermal): Yes Last Seen Last Seen: This patient was last seen in our office . Pertinent comments regarding their Physical therapy will appear below: Patient was to perform HEP and follow up as needed, she has not followed up and is appropriate to be d/c At this point I will be discontinuing this patient from physical therapy. I would be happy to see this patient again in the future if found appropriate by the physician. Thank you! Theodora Lamb, [employer] Balance/Gait/Functional tests Balance/Special Test Scores Lower Extremity Functional Score: 41
== END 2023-02-28 19:00 | disposition home or self-care (01) ==
LOC: PT 12:23
PROVIDERS: PCP Family Medicine; Visit Provider Student in an Organized Health Care Education/Training Program
DX: M76.61 Achilles tendinitis, right leg (principal); M76.62 Achilles tendinitis, left leg
CPT/HCPCS: 97110; 97162

== ENCOUNTER → 2023-04-27 | Outpatient (CLI) | payer MEDICARE, SELFPAY ==
--- NOTE | 2023-04-27 11:18 | RAD_ITS ---
STUDY: X-RAY - LUMBAR SPINE REASON FOR EXAM: Female, 78 years old. Back pain. TECHNIQUE: 5 view(s) of the lumbar spine were obtained. COMPARISON: None FINDINGS: Osteopenia. Normal lumbar lordosis. Moderate lumbosacral scoliosis. 12 mm of anterolisthesis of L4 on L5. Diffuse moderate lower thoracic and lumbosacral facet sclerosis. Endplate can cavities compatible with osteoporosis. Diffuse intervertebral disc space narrowing with osteophyte formation most marked at L1-2, L2-3, L4-5 and L5-S1. Vascular calcification. RAD/L/S Spine Min 4 Views IMPRESSION: Osteopenia with diffuse moderate lower thoracic and lumbosacral spondylosis as described. Electronically Signed: Jack Francis MD at 13:52 EST ,
[2023-04-27 13:19] LABS: ALB/GLOB Ratio 1.3 RATIO (0.9-2.4); AST(SGOT) 18 U/L (15-37); Alanine Aminotransfer ALT/SGPT 27 U/L (13-56); Alkaline Phosphatase 48 U/L (45-117); Anion Gap 9 (5-15); BUN 17 mg/dL (7-18); Calcium,Total 9.4 mg/dL (8.5-10.1); Chloride 108 mmol/L (98-107); Cholesterol 185 mg/dL (200); Creatinine, Serum 0.57 mg/dL (0.55-1.02); EST Glomerular Filtration Rate 109 mL/min (>60); Est Glom Filt Rate - Afr Amer 132 mL/min (>60); Glucose 105 mg/dL (74-106); High Density Lipoprotein 55 mg/dL; Potassium 4.2 mmol/L (3.5-5.1); Sodium Level 141 mmol/L (136-145); Triglycerides 201 mg/dL; Very Low Density Lipoprotein 40 mg/dL (5-40)
== END | disposition home or self-care (01) ==
PROVIDERS: PCP Family Medicine; Referring Provider Family Medicine; Visit Provider Family Medicine
DX: Z00.00 Encounter for general adult medical examination without abnormal findings (principal); Z13.6 Encounter for screening for cardiovascular disorders; M54.9 Dorsalgia, unspecified
CPT/HCPCS: 36415; 72110; 80053; 80061

== ENCOUNTER → 2023-11-21 | Outpatient (CLI) | payer MEDICARE, SELFPAY ==
[2023-11-21 12:12] LABS: ALB/GLOB Ratio 1.5 RATIO (0.9-2.4); AST(SGOT) 22 U/L (15-37); Alanine Aminotransfer ALT/SGPT 28 U/L (13-56); Alkaline Phosphatase 40 U/L (45-117); Anion Gap 8 (5-15); BUN 17 mg/dL (7-18); BUN/Creat Ratio 26.6 RATIO (10-20); Calcium,Total 9.7 mg/dL (8.5-10.1); Chloride 110 mmol/L (98-107); Cholesterol 179 mg/dL (200); Creatinine, Serum 0.64 mg/dL (0.55-1.02); EST Glomerular Filtration Rate 95 mL/min (>60); Est Glom Filt Rate - Afr Amer 115 mL/min (>60); Globulin 2.7 g/dL (2.2-4.2); Glucose 113 mg/dL (74-106); High Density Lipoprotein 54 mg/dL; Protein, Total 6.7 g/dL (6.4-8.2); Sodium Level 141 mmol/L (136-145); Triglycerides 153 mg/dL; Very Low Density Lipoprotein 31 mg/dL (5-40)
== END | disposition home or self-care (01) ==
LOC: MFPLAB 08:17
PROVIDERS: PCP Family Medicine; Visit Provider Family Medicine
DX: I10 Essential (primary) hypertension (principal)
CPT/HCPCS: 36415; 80053; 80061

== ENCOUNTER → 2024-08-23 | Outpatient (CLI) | payer MEDICARE, SELFPAY ==
[2024-08-23 12:35] LABS: ALB/GLOB Ratio 1.8 RATIO (0.9-2.4); AST(SGOT) 22 U/L (<=31); Alanine Aminotransfer ALT/SGPT 18 U/L (<=34); Albumin, Serum 4.3 g/dL (3.4-4.8); Alkaline Phosphatase 48 U/L (35-104); Anion Gap 13 (5-15); BUN 16 mg/dL (4-19); BUN/Creat Ratio 27.3 RATIO (10-20); Calcium,Total 9.8 mg/dL (7.6-11.0); Carbon Dioxide 20.5 mmol/L (21.0-32.0); Chloride 104 mmol/L (98-108); Cholesterol 175 mg/dL (<=200); Creatinine, Serum 0.59 mg/dL (0.70-1.20); EST Glomerular Filtration Rate 91 (>60); Globulin 2.5 g/dL (2.2-4.2); Glucose 112 mg/dL (70-99); High Density Lipoprotein 61 mg/dL; Low Density Lipoprotein Calc. 84 mg/dL; Potassium 4.1 mmol/L (3.3-5.1); Protein, Total 6.8 g/dL (5.9-8.4); Sodium Level 138 mmol/L (133-145); Triglycerides 151 mg/dL; Very Low Density Lipoprotein 30 mg/dL (5-40); cholesterol:hdl ratio screen 2.87
== END | disposition home or self-care (01) ==
LOC: MFPLAB 10:27
PROVIDERS: PCP Family Medicine; Referring Provider Family Medicine; Visit Provider Family Medicine
DX: I10 Essential (primary) hypertension (principal)
CPT/HCPCS: 36415; 80053; 80061

== ENCOUNTER → 2024-12-21 | Outpatient (CLI) | payer MEDICARE, SELFPAY ==
[2024-12-21 12:43] LABS: AST(SGOT) 27 U/L (<=31); Alanine Aminotransfer ALT/SGPT 26 U/L (<=34); Albumin, Serum 4.5 g/dL (3.4-4.8); Alkaline Phosphatase 48 U/L (35-104); Anion Gap 11 (5-15); BUN 15 mg/dL (4-19); BUN/Creat Ratio 21.9 RATIO (10-20); Calcium,Total 9.9 mg/dL (7.6-11.0); Carbon Dioxide 24.7 mmol/L (21.0-32.0); Chloride 105 mmol/L (98-108); Globulin 2.3 g/dL (2.2-4.2); Glucose 107 mg/dL (70-99); Potassium 4.3 mmol/L (3.3-5.1)
== END | disposition home or self-care (01) ==
LOC: MTLAB 10:25
PROVIDERS: PCP Family Medicine; Referring Provider Family Medicine; Visit Provider Family Medicine
DX: I10 Essential (primary) hypertension (principal)
CPT/HCPCS: 36415; 80053

== ENCOUNTER → 2025-03-21 | Outpatient (CLI) | payer MEDICARE, SELFPAY ==
[2025-03-21 12:58] LABS: Cholesterol 179 mg/dL (<=200); Low Density Lipoprotein Calc. 93 mg/dL; Triglycerides 119 mg/dL; Very Low Density Lipoprotein 24 mg/dL (5-40); cholesterol:hdl ratio screen 2.86
[2025-03-21 13:04] LABS: AST(SGOT) 22 U/L (<=31); Alanine Aminotransfer ALT/SGPT 19 U/L (<=34); Albumin, Serum 4.5 g/dL (3.4-4.8); Alkaline Phosphatase 46 U/L (35-104); Anion Gap 11 (5-15); BUN 27 mg/dL (4-19); BUN/Creat Ratio 36.5 RATIO (10-20); Calcium,Total 10.2 mg/dL (7.6-11.0); Carbon Dioxide 23.9 mmol/L (21.0-32.0); Chloride 106 mmol/L (98-108); Globulin 2.4 g/dL (2.2-4.2); Glucose 101 mg/dL (70-99); Potassium 4.9 mmol/L (3.3-5.1)
== END | disposition home or self-care (01) ==
LOC: MFPLAB 09:36
PROVIDERS: PCP Family Medicine; Visit Provider Family Medicine
DX: I10 Essential (primary) hypertension (principal)
CPT/HCPCS: 36415; 80053; 80061